=== PATIENT | female | born 1955 ===

== ENCOUNTER 2022-08-11 12:45 | Outpatient (CLI) | payer MEDICARE, SELFPAY ==
[2022-08-11 09:27] LABS: Chloride* 104 mmol/L (96-114); Potassium* 4.1 mmol/L (3.6-5.1); Sodium* 140 mmol/L (135-149)
[2022-08-11 09:29] LABS: Cholesterol* 192 mg/dL (90-199)
[2022-08-11 09:30] LABS: Blood Urea Nitrogen* 15 mg/dL (7-30); Calcium* 9.7 mg/dL (8.4-10.6); Carbon Dioxide* 30 mmol/L (20-32); Creatinine* 0.7 mg/dL (0.5-1.5); Estimated Glomerular Filt Rate 94 ml/min; Glucose* 88 mg/dL (60-115); HDL Cholesterol* 65 mg/dL (>=50); LDL Cholesterol Calculated 114 mg/dL (<100); Triglycerides* 66 mg/dL (40-149)
[2022-08-11 09:48] LABS: Vitamin D 25 Hydroxy* 38 ng/mL (30-80)
== END 2022-08-11 12:46 | disposition home or self-care (01) ==
PROVIDERS: PCP Internal Medicine; Visit Provider Internal Medicine
DX: Z00.00 Encounter for general adult medical examination without abnormal findings (principal); Z13.6 Encounter for screening for cardiovascular disorders; M81.0 Age-related osteoporosis without current pathological fracture
CPT/HCPCS: 80048; 80061; 82306

== ENCOUNTER 2023-08-21 07:55 | Outpatient (CLI) | payer MEDICARE, SELFPAY | END 2023-08-21 07:56 | disposition home or self-care (01) | LOC: NFLDREF 08-24 17:34 | PROVIDERS: PCP Internal Medicine; Referring Provider Internal Medicine; Visit Provider Internal Medicine | DX: E78.5 Hyperlipidemia, unspecified (principal); M81.0 Age-related osteoporosis without current pathological fracture | CPT/HCPCS: 80061; 82306 ==

== ENCOUNTER 2024-09-05 09:16 | Outpatient (CLI) | payer MEDICARE, SELFPAY ==
--- OUTSIDE RECORDS SUMMARY | 2024-09-08 06:42 | XMS_ITS | Clinical Summary ---
Author Organization [employer] [facility] Address [place], [place] [address] Care Team Providers Care Water Softener Service Supervisor Name Role Phone Irina Avitia MD Primary Care Prov ider Allergies No known active allergies Medications Medication Sig Dispensed Refills Start Date End Date Status Calcium-Cholecalcifero l, D3, (CALCIUM 500 + D, D3,) 500-125 mg-unit Tab Take by mouth. 0 03/04/2010 Active multivitamin (MVI) tablet Take 1 tablet by mouth once daily. 0 03/04/2010 Active zinc 15 mg tablet Take 15 mg by mouth once daily. 0 03/04/2010 Active Digestive Enzymes capsule Take by mouth. 0 03/04/2010 Active Active Problems Problem Noted Date Diagnosed Date Scoliosis 09/13/2013 Overview (09/13/2013): Chiropractor and exercises doing well Family History Medical History Relation Name Comments Good Health Brother Asthma Daughter sports induced Heart Disease Father during heart surgery Cancer Maternal Grandmother liver Other Mother of cirrhos is of liver unknown cause Good Health Sister 1 Psychiatric illness Sister 1 suicide Good Health Sister 2 Good Health Sister 3 Relation Name Status Comments Brother Daughter Father Maternal Grandmother Mother Sister 1 Sister 2 Sister 3 Social History Tobacco Use Types Packs/Day Years Used Date Smoking Tobacco: Never Smokeless Tobacco: Never Tobacco Cessation:Counseling Given: Yes Alcohol Use Standard Drinks/Week Comments Yes 0 (1 standard drink = 0.6 oz pur e alcohol) rarely Sex and Gender Information Value Date Recorded Sex Assigned at Not on file Gender Identity Not on file Sexual Orientation Not on file Obstetrics History Last Filed Vital Signs Vital Sign Reading Time Taken Comments Blood Pressure 110/65 07/03/2015 11:34 AM CDT Pulse 54 07/03/2015 11:34 AM CDT Temperature 36.4 ??C (97.5 ??F) 07/03/2015 11:34 AM C DT Respiratory Rate 16 07/03/2015 11:34 AM CDT Oxygen Saturation 100% 07/03/2015 11:34 AM CDT Inhaled Oxygen Concentration - - Weight 66.2 kg (146 lb) 07/03/2015 11:34 AM CDT Height 169 cm (5' 6.54) 01/30/2014 3:42 PM CDT Body Mass Index 23.18 01/30/2014 3:42 PM CDT Plan of Treatment Health Maintenance Due Date Last Done Comments Tdap 1964 Depression screening for age 12+ 1965 BMI (ht and wt on same day) for age 18+ 1971 Tetanus booster 1973 Mammogram for age 45-75 1998 Zoster (shingles) series for age 50+ (1 of 2) 2003 Fecal testing non-DNA (FIT,F OBT,iFOBT) for age 45-75 2014 2013, 09/14/2013 Lipids for age 45-75 09/13/2018 09/13/2013 DEXA/DXA scan for age 65+ 2018 Pneumococcal series for age 65+ (1 of 1 - PCV) 2018 COVID-19 vaccine series (2023-25 season) 2024 Influenza for age 65+ 06/26/2024 Hepatitis C screening for age 18-79 Completed 09/13 Procedures Procedure Name Priority Date/Time Associated Diagnosis Comments OCCULT BLOOD IFOBT STOOL Routine 2013 8:51 AM BRIDGE INSPECTOR Special screening for malignant neoplasms, colon LIPID PANEL W REFLEX MEASURED LDL Routine 09/13/2013 11:28 AM BRIDGE INSPECTOR Screening for lipoid disorders ANTI HCV Routine 09/13/2013 11:27 AM BRIDGE INSPECTOR Need for hepatitis C screening test from Last 3 Months or Most Recently Relevant to Health Maintenance Results * OCCULT BLOOD IFOBT STOOL (2013 8:51 AM BRIDGE INSPECTOR) Pathologist [facility] STOOL BLOOD ,IFOBT Negative Negative, Invalid 2013 9:[address] [facility] Stool specimen (specimen) STOOL SPECIMEN / Unknown Non-Blood / Unknown 2013 8:51 AM BRIDGE INSPECTOR 2013 8:51 AM BRIDGE INSPECTOR Irina Avitia MD LABORATORY Performing Organization Address City/[facility]/ZIP Co de Phone Number [facility] [address] [place] [address] * LIPID PANEL W REFLEX MEASURED LDL (09/13/2013 11:28 AM BRIDGE INSPECTOR) [facility] CHOLESTEROL,TOTAL 165 100 - 199 mg/dL 09/13/2013 12:[address] [facility] TRIGLYCERIDES 39 <150 mg/dL 09/13/2013 12:[address] [facility] HDL CHOLESTEROL 54 >40 mg/dL 3 12:[address] [facility] NON-HDL CHOLESTEROL 111 <145 mg/dl 09/13/2013 12:[address] [facility] CHOL/HDL RATIO 3.06 <4.50 09/13/2013 12:[address] [facility] LDL CHOLESTEROL 103 <=130 mg/dL 09/13/2013 12:[address] [facility] PATIENT STATUS FASTING 09/13/2013 12:[address] [facility] Blood specimen (specimen) BLOOD SPECIMEN / Unknown Venipuncture / Unknown 09/13/2013 11:28 AM BRIDGE INSPECTOR 09/13/2013 11:28 AM BRIDGE INSPECTOR Irina Avitia MD CHEMISTRY Performing Organization Address City/[facility]/ZIP Co de Phone Number [facility] [address] [place] [id number] * ANTI HCV [[id number]] (09/13/2013 11:27 AM BRIDGE INSPECTOR) Pathologist [facility] ANTI HCV Non-reacti ve [facility] Blood specimen (specimen) BLOOD SPECIMEN / Unknown 09/13/2013 11:27 AM BRIDGE INSPECTOR 09/13/2013 11:20 AM BRIDGE INSPECTOR Irina Avitia MD SEND OUTS [facility] [place]NAL ZIP [id number] [address] from Last 3 Months or Most Recently Relevant to Health Maintenance Care Teams Water Softener Service Supervisor Relationship Specialty Start Date End Date Irina Avitia MD PCP - General Family Practice 09/13/13
== END 2024-09-05 09:17 | disposition home or self-care (01) ==
LOC: NFLDREF 09-08 06:40
PROVIDERS: PCP Internal Medicine; Referring Provider Internal Medicine; Visit Provider Internal Medicine
DX: Z00.00 Encounter for general adult medical examination without abnormal findings (principal); M81.0 Age-related osteoporosis without current pathological fracture
CPT/HCPCS: 82306

== ENCOUNTER 2024-12-07 09:53 | Outpatient (CLI) | payer MEDICARE, SELFPAY | END 2024-12-07 09:54 | disposition home or self-care (01) | LOC: MAMMO 09:54 | PROVIDERS: PCP Internal Medicine; Visit Provider Internal Medicine | DX: Z12.31 Encounter for screening mammogram for malignant neoplasm of breast (principal); R92.333 Mammographic heterogeneous density, bilateral breasts | CPT/HCPCS: 77063; 77067 ==

== ENCOUNTER 2024-12-09 07:43 | Outpatient (CLI) | payer MEDICARE, SELFPAY | END 2024-12-09 07:44 | disposition home or self-care (01) | LOC: RAD 07:45 | PROVIDERS: PCP Internal Medicine; Visit Provider Internal Medicine | DX: K21.9 Gastro-esophageal reflux disease without esophagitis (principal); K44.9 Diaphragmatic hernia without obstruction or gangrene; R11.0 Nausea | CPT/HCPCS: 74221 ==

== ENCOUNTER 2025-09-08 07:39 | Outpatient (CLI) | payer MEDICARE, SELFPAY | END 2025-09-08 07:40 | disposition home or self-care (01) | LOC: NFLDREF 09-16 15:40 | PROVIDERS: PCP Internal Medicine; Referring Provider Internal Medicine; Visit Provider Internal Medicine | DX: M81.0 Age-related osteoporosis without current pathological fracture (principal); E78.5 Hyperlipidemia, unspecified | CPT/HCPCS: 80061; 82306 ==

== ENCOUNTER 2025-10-11 08:58 | Outpatient (CLI) | payer MEDICARE, SELFPAY ==
--- NOTE | 2025-10-11 09:30 | CRLHL7_ITS ---
For Patients: As a result of the Century Cures Act, medical imaging exams and procedure reports are released immediately into your electronic medical record. You may view this report before your referring provider. If you have questions, please contact your health care provider. DXA BONE MINERAL DENSITY STUDY Reason for exam: Age-related osteoporosis without current pathology. Current height (in): 67. Weight (lb): 152. Menopause age: 53. Ethnicity: White. 1. Have you had a previous hip or vertebral fracture? No. 2. Have you had any fractures during your adult life which did not result from significant trauma (e.g., auto accident)? No. 3. Did either of your parents have a hip fracture? No. 4. Do you smoke? No. 5. Have you ever taken Glucocorticoids? No. 6. Do you have rheumatoid arthritis? No. 7. Do you have secondary osteoporosis? No. 8. Do you drink 3 or more alcoholic drinks per day? No. 9. Are you being treated for osteoporosis? No. 10. Have you ever taken any of the following medications: Actonel, Evista, Fosamax, Miacalcin, Reclast, Boniva, Forteo, HRT (i.e. estrogen/hormone therapy), Protelos, Prolia, Vitamin D, Calcium, other ??? please specify. ANSWER: Yes, Vitamin D and Calcium. 11. Do you have any of the following medical conditions: Anorexia or bulimia, asthma or emphysema, end stage renal disease, hyperparathyroidism, any seizure disorders, cancer, inflammatory bowel diseases, hysterectomy, other ??? please specify. ANSWER: Yes, asthma or emphysema. 12. What was your maximum height (inches)? 68.5. 13. Do you perform weight bearing exercise regularly? Yes. 14. Do you regularly consume dairy products? Yes. 15. Do you drink caffeinated beverages? Yes. 16. At what age did your period start? 11. 17. Are you premenopausal? No. 18. How many full-term pregnancies have you had? 1. 19. Have you ever missed your period for more than 6 months in a row (not including or menopause)? No. TECHNIQUE: Bone mineral density study was performed using the [employer]. FINDINGS: The results of the study expressed as bone mineral density (BMD) are as follows: Lumbar spine L1 to L4: BMD: 0.817 g/cm2. T-score: -2.1. Z-score: 0.1. Neck Left: BMD: 0.509 g/cm2. T-score: -3.1. Z-score: -1.2. Right: BMD: 0.558 g/cm2. T-score: -2.6. Z-score: -0.7. Total Left: BMD: 0.631 g/cm2. T-score: -2.6. Z-score: -0.9. Right: BMD: 0.716 g/cm2. T-score: -1.9. Z-score: -0.2. Radius Left 33%: BMD: 0.479 g/cm2. T-score: -3.6. Z-score: -1.3. IMPRESSION: Osteoporosis. *Comparison exams done prior to 03/2020 were performed on different unit, [employer]. COMPARISON: Compared with the scan of 03/13/2022, the bone mineral density has increased by 4.9 percent at the spine and decreased by 1.4 percent at the hip. Compared with the scan of 07/18/2019, the bone mineral density has increased by 8.0 percent at the spine and increased by 7.1 percent at the hip. Ze Santiago M.D. Diagnostic Radiologist [email or web address]/Dictated by: Ze Santiago MD @ 10/11/2025 10:09:00 AM (Electronically Signed)
== END 2025-10-11 08:59 | disposition home or self-care (01) ==
LOC: RAD 08:59
PROVIDERS: PCP Internal Medicine; Visit Provider Internal Medicine
DX: M81.0 Age-related osteoporosis without current pathological fracture (principal); J45.909 Unspecified asthma, uncomplicated; Z79.899 Other long term (current) drug therapy
CPT/HCPCS: 77080